=== PATIENT | male | born 1970 | race Caucasian/White ===

== ENCOUNTER → 2017-08-14 | Outpatient (CLI) | payer OTHER | LOC: CIMAGING 07:54 | PROVIDERS: ATTEND Family Medicine | DX: R16.0 Hepatomegaly, not elsewhere classified (principal); K76.0 Fatty (change of) liver, not elsewhere classified; K82.4 Cholesterolosis of gallbladder; D22.9 Melanocytic nevi, unspecified; E03.9 Hypothyroidism, unspecified | CPT/HCPCS: 76705-PO ==